=== PATIENT | male | born 1995 | race Caucasian/White ===

== ENCOUNTER 2021-03-08 22:39 | Emergency (ER) | payer OTHER ==
[~2021-03-08] VITALS: Ht 177.8 cm; Wt 90.7 kg
[2021-03-08] MEDS ORDERED: Veetids 500500 MG PO (23:00)
[2021-03-08] MEDS ORDERED: IBUP600 PO (23:00)
== END 2021-03-08 23:17 | disposition home or self-care (01) ==
LOC: ER 22:39
DX: K04.7 Periapical abscess without sinus (principal); K02.9 Dental caries, unspecified
CPT/HCPCS: 99282; A9270